=== PATIENT | male | born 1950 | race Caucasian/White ===

== ENCOUNTER → 2017-04-15 | Outpatient (REF) | payer MEDICARE, OTHER | LOC: M LAB REF 17:25 | PROVIDERS: ATTEND Surgery | DX: D22.5 Melanocytic nevi of trunk (principal) ==

== ENCOUNTER → 2018-03-26 | Outpatient (REF) | payer MEDICARE, OTHER | LOC: M LAB REF 17:46 | DX: C44.622 Squamous cell carcinoma of skin of right upper limb, including shoulder (principal) | CPT/HCPCS: 88305 ==

== ENCOUNTER 2018-08-18 08:31 | Day surgery (SDC) | payer MEDICARE, OTHER ==
[~2018-08-18] VITALS: Ht 175.3 cm; Wt 98.9 kg
[~2018-08-18 08:31] MED LIST: ACETAMINOPHEN 325 MG TAB PO PRN; AMLO10CA PO; ATOR1TAB19 PO; ATOR1TAB21 PO; BSS with VANC/TOB/EPI for EYE CASES IR ONE; CYCLOPENTOLATE 2% OPHTH SOLN 2ML BTL OD ONE; HEALON DUET PRO(HEALON 10MG/ML 0.55ML & HEALON ENDOCOAT 30MG/ML 0.85ML) As Ordered ONE; LANS30CA PO; LIDOCAINE 1% SDV 5 ML VIAL As Ordered ONE; LIDOCAINE 3.5 % 1ML OPHTH TOPICAL GEL OU ONE; MOXIFLOXACIN IN BSS 0.25MG/0.25ML INTRACAMERAL INJ (OR EYE ONLY)(J2280) As Ordered ONE; OFLOXACIN 0.3 % (OCUFLOX) OPTH SOL 5ML OD ONE; PHENYLEPHRINE 2.5% OPHTH SOL 2ML OD ONE; PHENYLEPHRINE HCL 10 % OPHTH. SOL 5ML OD PRN; POVIDONE-IODINE 5% OPHTH PREP SOL 30ML As Ordered ONE; TRIAMCINOLONE PRES FR 40 MG/ML 1ML(TRIESENCE)(OR EYE ONLY)(J3300 PER 1MG) As Ordered ONE; TROPICAMIDE 1% OPHTH SOLN 2ML OD ONE
[2018-08-18] MEDS ORDERED: fentaNYL 100 MCG/2 ML INJECTION (J3010) As Ordered ONE (11:37)
[2018-08-18] MEDS ORDERED: MIDAZOLAM INJ 2 MG/2 ML VIAL (J2250) As Ordered ONE (11:37)
[2018-08-18] MEDS ORDERED: AcetaZOLAMIDE 500 MG ER CAP As Ordered ONE (11:59)
[2018-08-18 12:05] VITALS: BP 161/75
[2018-08-18] MEDS ORDERED: TRIMETHOBENZAMIDE 300 MG CAP PO PRN (12:15)
[2018-08-18] MEDS ORDERED: AcetaZOLAMIDE 500 MG ER CAP PO ONE (12:15)
== END 2018-08-18 12:15 | disposition home or self-care (01) ==
LOC: M SDC 08:31
PROVIDERS: ATTEND Ophthalmology
DX: H26.9 Unspecified cataract (principal); K21.9 Gastro-esophageal reflux disease without esophagitis; J44.9 Chronic obstructive pulmonary disease, unspecified; I10 Essential (primary) hypertension; Z79.899 Other long term (current) drug therapy
CPT/HCPCS: 66984; 92015; J2250; J2280; J3010; J3300; V2632

== ENCOUNTER → 2019-07-08 | Outpatient (CLI) | payer MEDICARE, OTHER ==
[~2019-07-08] MED LIST changes: -ACETAMINOPHEN 325 MG TAB PO PRN; -AMLO10CA PO; +AMLO10CA17 PO; -BSS with VANC/TOB/EPI for EYE CASES IR ONE; -CYCLOPENTOLATE 2% OPHTH SOLN 2ML BTL OD ONE; -HEALON DUET PRO(HEALON 10MG/ML 0.55ML & HEALON ENDOCOAT 30MG/ML 0.85ML) As Ordered ONE; -LIDOCAINE 1% SDV 5 ML VIAL As Ordered ONE; -LIDOCAINE 3.5 % 1ML OPHTH TOPICAL GEL OU ONE; -MOXIFLOXACIN IN BSS 0.25MG/0.25ML INTRACAMERAL INJ (OR EYE ONLY)(J2280) As Ordered ONE; -OFLOXACIN 0.3 % (OCUFLOX) OPTH SOL 5ML OD ONE; -PHENYLEPHRINE 2.5% OPHTH SOL 2ML OD ONE; -PHENYLEPHRINE HCL 10 % OPHTH. SOL 5ML OD PRN; -POVIDONE-IODINE 5% OPHTH PREP SOL 30ML As Ordered ONE; -TRIAMCINOLONE PRES FR 40 MG/ML 1ML(TRIESENCE)(OR EYE ONLY)(J3300 PER 1MG) As Ordered ONE; -TROPICAMIDE 1% OPHTH SOLN 2ML OD ONE
--- NOTE | 2019-07-08 14:15 | REP ---
Bilateral lower extremity arterial Doppler ultrasound: Right lower extremity: Brachial artery peak systole: 170 mmHg. Dorsalis pedis peak systole: 100 mmHg. PARTS FACILITATOR peak systole: 110 mmHg. DRE: 0.65 Peak Systolic Phasicity Velocity ELECTROTYPE MOLDER 96.9 monophasic Profunda 138 monophasic SFA prox 102 monophasic SFA mid 68 monophasic SFA dist 73/176 monophasic Pop 37.7 monophasic SHAD prox 31.8 monophasic Tib/P tr 35.5 monophasic PARTS FACILITATOR pr 34.7 monophasic PARTS FACILITATOR dst 35.9 are aphasic SHAD dst 25.6 monophasic Left lower extremity: Brachial artery peak systole: 160 mmHg. Dorsalis pedis peak systole: 160 mmHg. PARTS FACILITATOR peak systole: 158 mmHg. DRE 0.94. Peak Systolic Phasicity Velocity ELECTROTYPE MOLDER 260 triphasic Profunda 187 biphasic SFA prox 155 triphasic SFA mid 151 triphasic SFA dist 160 biphasic Pop 107 triphasic SHAD prox 53 triphasic Tib/P tr 78 triphasic PARTS FACILITATOR pr 100 triphasic PARTS FACILITATOR dst 7.3 biphasic SHAD dst 63.6 biphasic the Distal aorta: 90, 3.4 cm/sec monophasic Right DAVID: 617 cm/sec monophasic. Right E I A: 112 cm/sec monophasic The left DAVID: 277 centimeters per second biphasic The left E I A 225 cm/sec triphasic. Impression: There is moderate atheromatous plaque bilaterally. There is monophasic flow throughout the right lower extremity. There is by/triphasic flow throughout the right lower extremity. There are stenoses at the right DAVID origin and distal right SFA. There are elevated flow velocities from the left DAVID - distal left SFA. Electronically Signed by Rodri Gonzalez MD 07/08/2019 02:06 P
== END ==
LOC: M RAD 12:01
PROVIDERS: ATTEND Surgery
DX: I73.9 Peripheral vascular disease, unspecified (principal); I10 Essential (primary) hypertension

== ENCOUNTER → 2019-08-23 | Outpatient (CLI) | payer MEDICARE, OTHER ==
[2019-08-23 11:34] LABS: HEMATOCRIT 44.8 % (42.0-52.0); HEMOGLOBIN 14.9 g/dl (13.5-17.5); MEAN CORPUSCULAR HEMOGLOBIN 30.6 pg (27.0-33.0); MEAN CORPUSCULAR HGB CONC 33.3 g/dl (32.0-36.5); PLATELET COUNT, AUTOMATED 315 10^3/uL (150-450); RED BLOOD COUNT 4.87 10^6/uL (4.30-6.10); WHITE BLOOD COUNT 10.8 10^3/uL (4.0-10.0)
[2019-08-23 12:05] LABS: BLOOD UREA NITROGEN 13 MG/DL (7-18); CARBON DIOXIDE LEVEL 25 MEQ/L (21-32); CHLORIDE LEVEL 107 MEQ/L (98-107); CREATININE FOR GFR 0.82 MG/DL (0.70-1.30); GLOMERULAR FILTRATION RATE > 60.0 (>42); GLUCOSE, FASTING 124 MG/DL (70-100); POTASSIUM SERUM 4.2 MEQ/L (3.5-5.1); SODIUM LEVEL 138 MEQ/L (136-145)
== END ==
LOC: M WUC 09:46
PROVIDERS: ATTEND Physician Assistant
DX: I70.211 Atherosclerosis of native arteries of extremities with intermittent claudication, right leg (principal)

== ENCOUNTER → 2019-09-07 | Outpatient (CLI) | payer MEDICARE, OTHER ==
[~2019-09-07] MED LIST changes: +ACETAMINOPHEN 325 MG TAB PO PRN; +CLOP75TA2 PO; +CLOPIDOGREL 75 MG TAB As Ordered ONE; +CLOPIDOGREL 75 MG TAB PO ONE; +HEPARIN 1,000 UNITS/ML 10ML VIAL (FOR RADIOLOGY& DIALYSIS ONLY)(J1644-10) As Ordered ONE; +ISOVUE-300 61% 50ML VIAL (Q9967) As Ordered ONE; +LIDOCAINE 1% MDV 20ML VIAL As Ordered ONE; +MIDAZOLAM INJ 2 MG/2 ML VIAL (J2250) As Ordered ONE; +NS 1,000 ML IV SCH; +fentaNYL 100 MCG/2 ML INJECTION (J3010) As Ordered ONE
--- NOTE | 2019-09-07 09:09 | ROOPDOC ---
[facility] Report Of Operation Report of Operation DATE OF PROCEDURE: 09/07/19 PREPROCEDURE DIAGNOSES: Atherosclerosis in the jackson vessels with lifestyle limiting claudication right lower extremity POSTPROCEDURE DIAGNOSES: Same PROCEDURE: 1. Ultrasound-guided access left common femoral artery 2. Aortoiliofemoral arteriogram with oblique views of the right iliac system and selection of the right common iliac artery, SFA, popliteal with runoff 3. Predilation right common iliac artery and proximal external iliac artery with 6 x 100 [place] balloon 4. Stenting of the right common iliac artery and proximal external iliac artery with 8 x 57 express balloon expandable stent 5. Angioplasty of the distal SFA and proximal popliteal artery with 5 x 100 [place] balloon 6. Stent distal SFA with 6 x 100 Innova stent 7. Completion arteriograms 8. Mynx closure left common femoral artery SURGEON: Ger Solorio MD ANESTHESIA: Local anesthesia 10 mL lidocaine. Moderate intravenous conscious sedation was supervised by Dr. Solorio. The patient was independently monitored by registered nurse assigned to the Department of radiology using automated blood pressure, EKG, and pulse oximetry. The details sedation record is permanently stored in the hospital information system. The following is the brief sedation record: Start time was 07:39, stop time 08:50, Versed 1.5 mg IV, fentanyl 75 g IV, heparin 5000 units IV. CONTRAST: 67 mL of Isovue-300 INDICATION FOR PROCEDURE: Mr. Henderson is a 69-year-old gentleman with lifestyle limiting claudication of the right lower extremity that's been getting progressively worse. He has quit smoking. He tries to ambulate as much as he can without improvement. Risks benefits and alternatives to an arteriogram with potential intervention were explained to the patient knee was agreeable to proceed. Informed consent was obtained. INTERPRETATION: 1. The distal aorta and the left iliac system are widely patent. The right common iliac artery is heavily calcified with a tight stenosis just proximal to to the origin of the hypogastric, with stenosis extending into the proximal external iliac artery, approximately 80% stenotic. There is some poststenotic dilatation in the external iliac artery distal to this, and the rest of the external iliac artery leading into the common femoral artery is widely patent. 2. The right common femoral artery and profunda are widely patent and the SFA proximally is widely patent. The mid distal aspect of the SFA is ectatic with areas of stenosis 30-40% and then a heavily calcified 90% stenosis in the distal aspect of the artery just proximal to Akshat's canal. Distal to this the popliteal artery is mostly patent and free from stenosis, except for a few focal areas of 40% stenosis in the proximal popliteal artery. These are only mildly flow-limiting. Distal to this, the popliteal arteries widely patent and runs off into three-vessel with tibial flow all the way to the distal foot. The primary flow to the foot is through a much larger posterior tibial artery which supplies the majority of the pedal flow, but there is also flow through the anterior tibial artery into the dorsal pedis artery. The peroneal artery is diminutive and ends just above the ankle. 3. After predilation angioplasty and balloon-expandable stent placement in the distal common iliac artery and proximal external iliac artery, there is widely patent flow with no dissection embolization or extravasation noted. 4. After angioplasty in the distal SFA, there was still residual heavy plaque and stenosis, and we elected to stent with a 6 x 100 Innova stent and after post dilation, there was widely patent flow through the SFA with no residual stenosis, dissection, embolization, or extravasation. 5. After the first angioplasty of the popliteal artery, we noted a small [id number] dissection in the proximal popliteal artery at the area of heaviest plaque, and the second three-minute angioplasty was performed and following this there was widely patent flow through the popliteal artery with no significant residual dissection, no embolization, no extravasation. 3 vessel runoff is present on the final completion images. REPORT OF OPERATION: The patient was brought to the angiographic suite in stable condition and placed supine on the fluoroscopic table. His bilateral groins were prepped and draped in a sterile fashion. A timeout was performed. Sedation was administered without complication. Local anesthesia was administered to the skin and subcutaneous tissue over the left groin and a microneedle was used to access the left common femoral artery under ultrasound guidance. A wire was passed through this access under fluoroscopic guidance the needle was removed and a 4 Burkinan micro-sheath was placed and flushed with saline. We then advanced a Glidewire into the aorta under fluoroscopic guidance and an Omni flushed catheter and distal aorta. Aortoiliofemoral arteriograms were performed including oblique views, please see interpretation above. We then selected the right common iliac artery and performed additional images, and then selected the right common femoral artery and SFA with the Omni flushed catheter and performed additional runoff of the right lower extremity. Please see interpretation above. We exchanged the sheath for a 7 Burkinan 45 cm sheath and flushed the sheath was saline. The distal tip of the sheath was placed just above the stenosis in the right common iliac artery over the bifurcation. We predilated the right common iliac system with a 6 x 100 [place] balloon and followed this with a 8 x 57 express balloon expandable stent across the distal common iliac artery and the proximal external iliac artery. Following this there was widely patent flow with no residual stenosis noted. We then replaced the dilator and the sheath and advanced it into the common femoral artery on the right. We flushes sheath with saline. We advanced a 5 x 100 [place] balloon over the wire into the mid SFA. We then used the wire and balloon to cross through the near occlusion in the distal SFA. Once we had advanced the wire and balloon safely into the popliteal artery, we remove the wire performed a quick arteriogram with the popliteal artery selection to confirm we were in the true lumen. We then performed serial angioplasties along the proximal popliteal artery distal SFA mid SFA for three- minute inflations. Following this there was still residual stenosis in the distal SFA that was flow-limiting and we selected a 6 x 100 Innova stent and deployed this and postdilated it. Afterwards, there was widely patent flow through the SFA with no significant residual stenosis. We then noted a small area of dissection at the area of heaviest plaque in the popliteal artery proximally, and a second three-minute inflations of the 5 x 100 [place] balloon was performed. Following this, there was smooth flow through the popliteal artery with minimal dissection noted that was not flow-limiting. No embolization extravasation was noted. The final tibial images showed 3 vessel runoff to the ankle and excellent pedal flow through the posterior tibial and the plantar vessels and the dorsal pedis arteries well. We then exchanged to the sheath for short 7 Burkinan sheath and flushes sheath was saline. A Mynx closure device was deployed at the left common femoral artery with good hemostasis. Pressure was held for 10 minutes and sterile dressings were applied and the patient was taken to recovery in stable condition. ESTIMATED BLOOD LOSS: Approximately 5 mL. COMPLICATIONS: None. PLAN: We plan to see the patient back in a week or 2 to check his groin access site and see how he is doing after angioplasty. He will need Plavix for 60 days post stent placement. We will give him his first dose of Plavix in recovery today. He should continue to ambulate as much as possible to improve circulation. It is okay to resume home medications and diet. GER SOLORIO MD Sep 07, 2019 09:09
[2019-09-07 13:00] VITALS: BP 164/78
== END ==
LOC: M IRPRO 06:26
PROVIDERS: ATTEND Surgery Vascular Surgery
DX: I70.211 Atherosclerosis of native arteries of extremities with intermittent claudication, right leg (principal); I10 Essential (primary) hypertension
CPT/HCPCS: 37226; 37230; 37234; 75716; 75774; 99152; 99153; C1725; C1760; C1769; C1876; C1887; C1894; J1644; J2250; J3010; Q9967

== ENCOUNTER → 2019-11-17 | Outpatient (CLI) | payer MEDICARE, OTHER ==
[~2019-11-17] MED LIST changes: -ACETAMINOPHEN 325 MG TAB PO PRN; -CLOPIDOGREL 75 MG TAB As Ordered ONE; -CLOPIDOGREL 75 MG TAB PO ONE; -HEPARIN 1,000 UNITS/ML 10ML VIAL (FOR RADIOLOGY& DIALYSIS ONLY)(J1644-10) As Ordered ONE; -ISOVUE-300 61% 50ML VIAL (Q9967) As Ordered ONE; -LIDOCAINE 1% MDV 20ML VIAL As Ordered ONE; -MIDAZOLAM INJ 2 MG/2 ML VIAL (J2250) As Ordered ONE; -NS 1,000 ML IV SCH; -fentaNYL 100 MCG/2 ML INJECTION (J3010) As Ordered ONE
--- NOTE | 2019-11-17 15:49 | REP ---
REASON: Status post right iliac stent and right SFA stent placement. RIGHT SIDE: Ankle brachial index is 1.0. PLASTICS FABRICATOR OR WELDER 173 cm/s Triphasic Profunda 209 cm/s Triphasic SFA proximal 168 cm/s Triphasic SFA mid 114 cm/s Triphasic SFA distal 139/139/105 cm/s Triphasic Popliteal 84.0 cm/s Triphasic SHAD proximal 54 cm/s Triphasic Tibioperoneal trunk 56 cm/s Triphasic PETROLEUM REFINING EQUIPMENT OPERATOR proximal 71 cm/s Triphasic PETROLEUM REFINING EQUIPMENT OPERATOR distal 93 cm/s Triphasic SHAD distal 68 cm/s Triphasic LEFT SIDE: Ankle brachial index is 0.94. PLASTICS FABRICATOR OR WELDER 155 cm/s Biphasic Profunda 165 cm/s Biphasic SFA proximal 78 cm/s Triphasic SFA mid 93 cm/s Triphasic SFA distal 80 cm/s Biphasic Popliteal 79 cm/s Biphasic SHAD proximal 49 cm/s Biphasic Tibioperoneal trunk 54 cm/s Biphasic PETROLEUM REFINING EQUIPMENT OPERATOR proximal 124 cm/s Biphasic PETROLEUM REFINING EQUIPMENT OPERATOR distal 67 cm/s Biphasic SHAD distal 53 cm/s Biphasic The technologist has made notes that on the right, the stent in the SFA was seen to be patent now having triphasic waveforms throughout. No evidence of significant stenosis or luminal narrowing was seen involving either the PLASTICS FABRICATOR OR WELDER or iliac stent. Left side, no significant change from priors. Electronically Signed by Severino Blank DO 11/17/2019 03:55 P
== END ==
LOC: M RAD 13:21
PROVIDERS: ATTEND Physician Assistant
DX: I70.213 Atherosclerosis of native arteries of extremities with intermittent claudication, bilateral legs (principal); R09.89 Other specified symptoms and signs involving the circulatory and respiratory systems

== ENCOUNTER → 2020-01-20 | Outpatient (REF) | payer MEDICARE, OTHER | LOC: M LAB REF 11:23 | PROVIDERS: ATTEND Dermatology | DX: C44.311 Basal cell carcinoma of skin of nose (principal) ==

== ENCOUNTER → 2020-06-01 | Outpatient (CLI) | payer MEDICARE, OTHER ==
--- NOTE | 2020-06-01 09:08 | REP ---
INDICATION: ATHEROSCLEROSIS. Peripheral vascular disease, right common iliac artery and superficial femoral artery stent. COMPARISON: Comparison study November 17, 2019.. TECHNIQUE: Bilateral lower extremity arterial Doppler ultrasound evaluation. FINDINGS: Ankle brachial indices are normal measured at 1.03 on the right and 1.03 on the left. Systolic brachial pressures are 150 mmHg. Biphasic waveforms are noted predominantly throughout the lower extremity arteries on both sides. Moderate plaquing is seen. There is a 3.4:1 velocity ratio stenosis within the right mid SFA stent and a 1.8:1 velocity ratio stenosis is seen in the left distal SFA. Velocities here are increased since the prior study Peak systolic flow velocity in the obtuse low abdominal aorta is 79 centimeters/second. The right common iliac and right external iliac PSV values are 126 and 203 centimeters/second respectively. On the left the common iliac artery velocities are 153/257 cm/S. The left external iliac artery peak systolic flow velocity is 226 cm/S. 1.7:1 velocity ratio stenosis suspected left common iliac. Mild.. Right lower extremity arterial Doppler velocity chart: Right HUMANE OFFICER PSV 196/181 cm/S Profundal 229 Proximal SFA 170 Mid SFA 105 Distal SFA 355/163 Popliteal 179/88 Proximal SHAD 67 Tibial-peroneal trunk 63 Proximal PIE TOPPER 55 Distal PIE TOPPER 94 Distal SHAD 51 Left lower extremity arterial Doppler velocity chart: Left HUMANE OFFICER PSV 171 cm/S Profundal 154 Proximal SFA 120 Mid SFA 116/168 Distal SFA 209 Popliteal 108/84 Proximal SHAD 78 Tibial-peroneal trunk 73 Proximal PIE TOPPER 104 Distal PIE TOPPER 85 Distal SHAD 70 IMPRESSION: Atherosclerotic changes as noted above. <Electronically signed by Edison Rudolph > 06/01/20 0904
== END ==
LOC: M RAD 07:16
PROVIDERS: ATTEND Physician Assistant
DX: I70.213 Atherosclerosis of native arteries of extremities with intermittent claudication, bilateral legs (principal); R09.89 Other specified symptoms and signs involving the circulatory and respiratory systems

== ENCOUNTER → 2021-03-13 | Outpatient (CLI) | payer MEDICARE, OTHER ==
--- NOTE | 2021-03-13 08:44 | REP ---
INDICATION: CLAUDICATION. COMPARISON: Comparison study June 01, 2020. TECHNIQUE: Bilateral lower extremity arterial Doppler sonography. FINDINGS: Ankle brachial indices are normal measured at 1.0 on the right and 0.94 on the left. In the right lower extremity, there is moderate plaquing. A patent distal SFA stent is observed. There is a mild, 2.3-1 velocity ratio stenosis at its distal and. Moderate plaquing is seen in the left lower extremity arterial tree as well with some luminal narrowing in the distal superficial femoral artery but no definite significant stenosis. Similar findings to prior study. Biphasic arterial Doppler waveforms are noted throughout both lower extremities today. Right lower extremity arterial Doppler velocity chart: Right ORTHOPEDIC RADIOLOGIC TECHNOLOGIST PSV 187 cm/S Profundal 199 Proximal SFA 162 Mid SFA 127 Distal SFA stent 93/177/216 Popliteal 68/74 Proximal SHAD 49 Tibial-peroneal trunk 72 Proximal CAMP GUARD 82 Distal CAMP GUARD 58 Distal SHAD 56 Left lower extremity arterial Doppler velocity chart: Left ORTHOPEDIC RADIOLOGIC TECHNOLOGIST PSV 141 cm/S Profundal 147 Proximal SFA 140 Mid SFA 112 Distal SFA 129 Popliteal 103 Proximal SHAD 55 Tibial-peroneal trunk 63 Proximal CAMP GUARD 87 Distal CAMP GUARD 62 Distal SHAD 60 IMPRESSION: Atherosclerotic changes as above. Mild stenosis at the distal and of the patent SFA stent on the right. <Electronically signed by Edison Rudolph > 03/13/21 6725
== END ==
LOC: M RAD 06:50
PROVIDERS: ATTEND Surgery Vascular Surgery
DX: I70.213 Atherosclerosis of native arteries of extremities with intermittent claudication, bilateral legs (principal)

== ENCOUNTER → 2022-07-11 | Outpatient (CLI) | payer MEDICARE, OTHER | LOC: M RAD 07:37 | PROVIDERS: ATTEND Surgery Vascular Surgery | DX: I73.9 Peripheral vascular disease, unspecified (principal); I65.29 Occlusion and stenosis of unspecified carotid artery ==

== ENCOUNTER → 2024-02-13 | Outpatient (CLI) | payer MEDICARE, OTHER ==
[~2024-02-13] MED LIST changes: +CHOL100012 PO; +ROSU40TA81 PO
== END ==
LOC: M ONCR 08:40
PROVIDERS: ATTEND General Practice
DX: C44.311 Basal cell carcinoma of skin of nose (principal); C44.319 Basal cell carcinoma of skin of other parts of face; Z98.890 Other specified postprocedural states; Z87.891 Personal history of nicotine dependence; Z79.899 Other long term (current) drug therapy

== ENCOUNTER 2024-03-09 10:10 | Outpatient (RCR) | payer MEDICARE, OTHER | END 2024-03-15 | LOC: M ONCR 10:10 | PROVIDERS: ATTEND General Practice | DX: Z51.0 Encounter for antineoplastic radiation therapy (principal); C44.311 Basal cell carcinoma of skin of nose ==

== ENCOUNTER → 2024-04-15 | Outpatient (RCR) | payer MEDICARE, OTHER ==
[~2024-04-15] MED LIST changes: +AMOX875T2 PO
== END ==
LOC: M ONCR 03-25 09:44
PROVIDERS: ATTEND General Practice
DX: Z51.0 Encounter for antineoplastic radiation therapy (principal); C44.311 Basal cell carcinoma of skin of nose

== ENCOUNTER 2024-05-05 09:34 | Outpatient (RCR) | payer MEDICARE, OTHER ==
[2024-05-05] MEDS ORDERED: OPCOSOL OP (10:05)
== END 2024-05-15 ==
LOC: M ONCR 09:34
PROVIDERS: ATTEND General Practice
DX: Z51.0 Encounter for antineoplastic radiation therapy (principal); C44.311 Basal cell carcinoma of skin of nose

== ENCOUNTER → 2024-06-04 | Outpatient (CLI) | payer MEDICARE, OTHER ==
[~2024-06-04] MED LIST changes: +OPCOSOL OP
== END ==
LOC: M ONCR 10:43
PROVIDERS: ATTEND General Practice
DX: C44.311 Basal cell carcinoma of skin of nose (principal); Z92.3 Personal history of irradiation

== ENCOUNTER → 2024-11-02 | Outpatient (CLI) | payer MEDICARE, OTHER | LOC: M ONCR 10:20 | PROVIDERS: ATTEND General Practice | DX: C44.311 Basal cell carcinoma of skin of nose (principal); C44.222 Squamous cell carcinoma of skin of right ear and external auricular canal; Z79.899 Other long term (current) drug therapy ==

== ENCOUNTER → 2025-03-30 | Outpatient (REF) | payer MEDICARE, OTHER ==
[2025-03-30 13:59] LABS: BASO # 0.1 10^3/uL (0.0-0.2); BASO % 0.9 % (0.0-1.0); EOS # 0.4 10^3/uL (0.0-0.5); EOS % 3.9 % (0.0-3.0); LYMPH # 3.1 10^3/uL (1.5-5.0); LYMPH % 30.6 % (24.0-44.0); MONO # 0.9 10^3/uL (0.0-0.8); MONO % 8.4 % (2.0-8.0); NEUTROPHILS # 5.6 10^3/uL (1.5-8.5); NEUTROPHILS % 55.8 % (36.0-66.0); PLATELET COUNT, AUTOMATED 300 10^3/uL (150-450)
[2025-03-30 14:32] LABS: ALT/SGPT 35 U/L (7.0-40); AST/SGOT 17 U/L (<34); CALCIUM LEVEL 9.7 MG/DL (8.3-10.6); CARBON DIOXIDE LEVEL 26 MMOL/L (20-31); CHLORIDE LEVEL 106 MMOL/L (98-107); CHOLESTEROL LEVEL 113 MG/DL (<200); CHOLESTEROL RISK RATIO 2.89 (<5); CREATININE FOR GFR 0.95 MG/DL (0.70-1.30); GLOMERULAR FILTRATION RATE 83.0 (>42); LDL CHOLESTEROL 25.0 MG/DL (<100); NON-HDL-C 74.0 MG/DL; POTASSIUM SERUM 4.4 MMOL/L (3.5-5.1); SODIUM LEVEL 145 MMOL/L (136-145); TRIGLYCERIDES LEVEL 245 MG/DL (<150)
[2025-03-30 14:34] LABS: FREE T4 1.20 NG/DL (0.89-1.76); VITAMIN B12 LEVEL 734 PG/ML (211-911)
[2025-03-30 14:38] LABS: ESTIMATED AVERAGE GLUCOSE 117.0 MG/DL (60-110)
== END ==
LOC: M SFHCADAM 11:05
PROVIDERS: ATTEND Physician Assistant
DX: Z00.00 Encounter for general adult medical examination without abnormal findings (principal); Z01.10 Encounter for examination of ears and hearing without abnormal findings; Z28.21 Immunization not carried out because of patient refusal; R26.89 Other abnormalities of gait and mobility; I10 Essential (primary) hypertension; I73.9 Peripheral vascular disease, unspecified; E78.00 Pure hypercholesterolemia, unspecified; M79.671 Pain in right foot; R41.3 Other amnesia; Z13.1 Encounter for screening for diabetes mellitus

== ENCOUNTER → 2025-05-19 | Outpatient (CLI) | payer MEDICARE, OTHER | LOC: M PLARAD 10:07 | PROVIDERS: ATTEND Physician Assistant | DX: R26.89 Other abnormalities of gait and mobility (principal); R41.3 Other amnesia ==

== ENCOUNTER → 2025-05-25 | Outpatient (CLI) | payer MEDICARE, OTHER | LOC: M ONCR 08:18 | PROVIDERS: ATTEND General Practice | DX: C44.311 Basal cell carcinoma of skin of nose (principal); Z92.3 Personal history of irradiation; Z87.891 Personal history of nicotine dependence; Z79.899 Other long term (current) drug therapy ==

== ENCOUNTER → 2025-05-30 | Outpatient (CLI) | payer MEDICARE, OTHER | LOC: M PLAIMG 12:27 | PROVIDERS: ATTEND Physician Assistant | DX: I63.89 Other cerebral infarction (principal) ==

== ENCOUNTER 2025-05-31 07:49 | Outpatient (RCR) | payer MEDICARE, OTHER | END 2025-06-15 | LOC: M ONCR 07:49 | PROVIDERS: ATTEND General Practice | DX: Z51.0 Encounter for antineoplastic radiation therapy (principal); C44.311 Basal cell carcinoma of skin of nose ==

== ENCOUNTER → 2025-06-15 | Outpatient (CLI) | payer MEDICARE, OTHER ==
[2025-06-15 13:33] LABS: BASO # 0.1 10^3/uL (0.0-0.2); BASO % 0.6 % (0.0-1.0); EOS # 0.4 10^3/uL (0.0-0.5); EOS % 3.3 % (0.0-3.0); LYMPH # 3.9 10^3/uL (1.5-5.0); LYMPH % 30.4 % (24.0-44.0); MONO # 1.0 10^3/uL (0.0-0.8); MONO % 7.5 % (2.0-8.0); NEUTROPHILS # 7.3 10^3/uL (1.5-8.5); NEUTROPHILS % 57.5 % (36.0-66.0); PLATELET COUNT, AUTOMATED 394 10^3/uL (150-450)
[2025-06-15 14:05] LABS: VITAMIN B12 LEVEL 734 PG/ML (211-911)
[2025-06-15 14:07] LABS: ALT/SGPT 20 U/L (7.0-40); AST/SGOT 8 U/L (<34); CALCIUM LEVEL 10.2 MG/DL (8.3-10.6); CARBON DIOXIDE LEVEL 25 MMOL/L (20-31); CHLORIDE LEVEL 107 MMOL/L (98-107); CREATININE FOR GFR 0.98 MG/DL (0.70-1.30); GLOMERULAR FILTRATION RATE 79.9 (>42); POTASSIUM SERUM 4.5 MMOL/L (3.5-5.1); SODIUM LEVEL 142 MMOL/L (136-145)
[2025-06-15 14:08] LABS: T UPTAKE 25.0 % (22.5-37.0)
[2025-06-15 14:29] LABS: THYROXINE (T4) 7.9 UG/DL (4.5-10.9)
[2025-06-18 03:48] LABS: VITAMIN E(ALPHA TOCOPHEROL) 12.9 mg/L (5.7-19.9); VITAMIN E(GAMMA TOCOPHEROL) < 1.0 mg/L (<=4.3)
[2025-06-19 15:17] LABS: VITAMIN B6,PYRIDOXAL PHOSPHATE 11.8 ng/mL (2.1-21.7)
[2025-06-21 01:52] LABS: VITAMIN B1 LEVEL WHOLE BLOOD 167 nmol/L (78-185)
== END ==
LOC: M PLALAB 11:35
PROVIDERS: ATTEND Psychiatry & Neurology Neurology
DX: R41.3 Other amnesia (principal); E07.9 Disorder of thyroid, unspecified; D51.9 Vitamin B12 deficiency anemia, unspecified; Z11.3 Encounter for screening for infections with a predominantly sexual mode of transmission; R41.0 Disorientation, unspecified